=== PATIENT | female | born 1960 ===

== ENCOUNTER 2017-01-15 15:34 | Observation (INO) ==
[2017-01-15] MEDS ORDERED: ONDANSETRON 4 MG/2 ML VIAL IV PRN (16:12)
[2017-01-15] MEDS ORDERED: ACETAMINOPHEN 325 MG TABLET PO PRN (16:12)
[2017-01-15] MEDS ORDERED: DOCUSATE SODIUM 100 MG CAPSULE PO PRN (16:12)
[2017-01-15] MEDS ORDERED: LORazepam 0.5 MG TABLET PO PRN (16:20)
[2017-01-15] MEDS: SODIUM CHLORIDE 0.9% 1,000 ML IV SCH ×2 (18:22→21:06)
[2017-01-15] MEDS: SERTRALINE 50 MG TABLET PO SCH (20:17)
[2017-01-16] MEDS: SODIUM CHLORIDE 0.9% 1,000 ML IV SCH ×4 (04:42→23:48)
[2017-01-16 04:46] LABS: Basophils % 0.5 % (0.0-0.8); Eosinophils # 0.2 10*3/uL (0.0-0.87); Eosinophils % 2.6 % (0.00-10.9); Hematocrit 40.1 VOL% (35.7-47.0); Hemoglobin 13.7 GM/DL (12.0-16.0); Immature Granulocytes % 0.3 %; Immature Granulocytes Absolute 0.02 #; Lymphocytes # 1.7 10*3/uL (1.4-4.0); Lymphocytes % 26.9 % (21.3-54.2); Mean Corpuscular HGB Conc 34.2 GM/DL (32-36); Mean Corpuscular Hemoglobin 33 PG (27-34); Mean Corpuscular Volume 95.2 FL (87-102); Monocytes # 0.5 10*3/uL (0.11-0.8); Monocytes % 7.7 % (1.7-12.7); Neutrophils # 3.8 10*3/uL (1.4-7.4); Platelet Count 175 T/CUMM (130-400); Red Blood Count 4.21 MC/CUMM (3.8-5.5); Red Cell Distribution Width 13.1 % (9.3-17.3); White Blood Count 6.1 T/CUMM (4-12)
[2017-01-16 05:07] LABS: Alanine Aminotransferase 53 U/L (13-56); Alkaline Phosphatase 76 U/L (45-117); Aspartate Amino Transferase 38 U/L (0-37); Blood Urea Nitrogen 11 MG/DL (7-18); Calcium 7.9 MG/DL (8.5-10.1); Glucose 154 MG/DL (74-106); Magnesium 1.9 MG/DL (1.8-2.4); Osmolality,Calculated 287.8 MOS/KG (273-304); Sodium 144 MMOL/L (136-145); Total Protein 6.4 G/DL (6.4-8.3)
[2017-01-16] MEDS: ENOXAPARIN 40 MG/0.4 ML SYRINGE SUBCUT SCH (08:29)
[2017-01-16] MEDS: PANTOPRAZOLE 40 MG TABLET PO SCH (08:29)
[2017-01-16] MEDS: SERTRALINE 50 MG TABLET PO SCH (20:32)
[2017-01-17] MEDS: SODIUM CHLORIDE 0.9% 1,000 ML IV SCH (04:35)
[2017-01-17] MEDS: PANTOPRAZOLE 40 MG TABLET PO SCH (08:47)
[2017-01-17] MEDS: ENOXAPARIN 40 MG/0.4 ML SYRINGE SUBCUT SCH (08:48)
[2017-01-17 19:43] VITALS: BP 145/111
== END 2017-01-17 19:51 | disposition home or self-care (01) ==
LOC: N.CC 15:34 → INTOOBSV 15:34 → N.CC 15:49
PROVIDERS: ADMIT Internal Medicine; ATTEND Internal Medicine